=== PATIENT | female | born 1980 | race Asian ===

== ENCOUNTER 2022-05-11 17:06 | Emergency (ER) | payer MEDICAID, SELFPAY ==
--- NOTE | ~2022-05-11 | XR_ITS ---
Indication: Pain, swelling EXAMINATION: Left wrist. 4 views. Findings; There is a bony density adjacent the ulnar styloid which is fairly large. Measures 6 mm. The ulnar styloid itself appears intact. There is no convincing evidence otherwise for an acute fracture or dislocation in the left wrist. XR/XR hand wrist LT IMPRESSION: Large bony density adjacent to the ulnar styloid. This could be dystrophic calcification. Correlation recommended clinically. Possibly this could represent a fracture fragment but no convincing evidence for an acute fracture is present. Correlation recommended clinically. If further evaluation is warranted recommend MRI.
[2022-05-11 17:11] VITALS: BP 167/100; PULSE 106; O2SAT 100
[2022-05-11 17:56] VITALS: BP 144/94; PULSE 98; RESP 18; TEMP 36.5; O2SAT 99; BMI 24.6
--- NOTE | 2022-05-11 21:47 | ED_ITS ---
HPI - Extremity Problem General Chief complaint: Extremity Injury, Upper Stated complaint: l wrist pain Time Seen by Provider: 05/11/22 21:47 Source: patient Mode of arrival: ambulatory Limitations: no limitations History of Present Illness HPI Narrative: Patient with no significant past medical history noticed redness and swelling of the left wrist spreading to the forearm no skin breakdown no fever or chills no any joint pain patient already had labs done today at PCP office prior to arrival Related Data Previous Rx's Medication Instructions Recorded cephalexin 500 mg capsule 500 mg PO QID 10 days #40 caps 05/11/22 doxycycline hyclate 100 mg tablet 100 mg PO BID #20 tabs 05/11/22 lorazepam 0.5 mg tablet (Ativan) 0.5 mg PO BEDTIME PRN sleep #10 05/11/22 tabs naproxen 500 mg tablet (Naprosyn) 500 mg PO BID #20 tabs 05/11/22 Allergies Allergy/AdvReac Type Severity Reaction Status Date / Time No Known Allergies Allergy Verified 05/11/22 17:55 [No Known Allergies*] Review of Systems Review of Systems: Yes all other systems are reviewed and are negative [facility] Social History Social History Advance Directives: No Advance Directives Information Provided: No Physical Exam Vital Signs: Vital Signs: Last Vital Signs Temp 97.7 F 05/11/22 17:56 Pulse 98 05/11/22 17:56 Resp 18 05/11/22 17:56 BP 144/94 H 05/11/22 17:56 Pulse Ox 99 05/11/22 17:56 O2 Del Method 05/11/22 17:56 BMI result Body Mass Index 24.6 Appearance: Alert. Oriented X3. No acute distress. ENT: Pharynx normal. Oral Mucosa moist Neck: Normal inspection. Neck supple. CVS: Normal heart rate and rhythm. Pulses normal. Respiratory: No respiratory distress. Equal air entry bilateral, Abdomen: Soft and nontender. Bowel sounds are present, Skin: Skin warm and dry. Normal skin color. Normal skin turgor. Extremities: No lower extremity edema. No calf tenderness diffuse swelling of left forearm with erythema and warm no joint effusion Neuro: Oriented X 3. No motor deficit. MDM - Extremity (Nontraumatic) MDM Narrative Medical decision making narrative: Etiology for school it is not very clear patient already had labs done at PCP office she went to follow-up with PCP next week for now will start patient on antibiotics will give wrist splint Discharge Plan Discharge Clinical Impression: Cellulitis of forearm, left Patient Disposition: Home, Self-Care Instructions: Cellulitis (ED) Additional Instructions: Keep your left hand in wrist splint for support Pain medication and antibiotic as prescribed follow-up with PCP as scheduled for recheck next week Prescriptions: New cephalexin 500 mg capsule 500 mg PO QID 10 Days Qty: 40 0RF doxycycline hyclate 100 mg tablet 100 mg PO BID Qty: 20 0RF naproxen [Naprosyn] 500 mg tablet 500 mg PO BID Qty: 20 0RF lorazepam [Ativan] 0.5 mg tablet 0.5 mg PO BEDTIME PRN (Reason: sleep) Qty: 10 0RF
[2022-05-11] MEDS: NaPROXEN 500 MG TABLET PO (22:31)
[2022-05-11] MEDS: cephALEXin 500 MG CAPSULE PO (22:31)
== END 2022-05-11 22:56 | disposition home or self-care (01) ==
PROVIDERS: Emergency Provider Internal Medicine; PCP Nurse Practitioner Primary Care
DX: M25.532 Pain in left wrist (principal); L03.114 Cellulitis of left upper limb
CPT/HCPCS: 29125; 73110; 73130; 99283